=== PATIENT | female | born 1985 | race Caucasian/White ===

== ENCOUNTER 2021-08-19 17:55 | Emergency (ER) | payer OTHER, MEDICAID, SELFPAY ==
[2021-08-19 18:12] VITALS: BP 134/99; PULSE 106; RESP 20; TEMP 36.6; O2SAT 99; BMI 43.5
[2021-08-19 18:37] LABS: COVID19 -Nasal RAPID Negative (Negative)
--- NOTE | 2021-08-19 18:39 | ED_ITS ---
HPI - Nausea/Vomiting/Diarrhea General Chief complaint: Nausea/Vomiting/Diarrhea Stated complaint: dizzy not able to eat Time Seen by Provider: 08/19/21 18:24 Source: patient Mode of arrival: Family Vehicle History of Present Illness HPI Narrative: 36-year-old female daily smoker with history of diabetes presents with her mother and a chief complaint from a weak feeling poorly with various symptoms including generalized weakness, poor appetite and more recently nausea, vomiting and diarrhea. She denies any recent travel, change in diet or medications. She has had no fever or chills. She denies runny nose, sore throat or cough. She has become dizzy over the past day or 2, primarily upon standing and largely more fatigued than normal. She is on vaccinated against COVID but denies any exposure to others with known or suspected illness. She spoke with her primary care provider a few days ago who encouraged her to stop taking her metformin (she is on other diabetic meds) and encourage fluids Related Data Previous Rx's Medication Instructions Recorded ondansetron 4 mg disintegrating 4 mg PO TID-QID PRN #10 tab 08/19/21 tablet pantoprazole 40 mg tablet,delayed 40 mg PO DAILY #30 tab 08/19/21 release (Protonix) Allergies Allergy/AdvReac Type Severity Reaction Status Date / Time clarithromycin [From BIAXIN] Allergy Unknown Verified 08/19/21 18:18 erythromycin base Allergy Unknown Verified 08/19/21 18:18 [ERYTHROMYCIN BASE] Penicillins [PENICILLINS] Allergy Unknown Verified 08/19/21 18:18 Review of Systems Review of Systems Narrative: GENERAL: See HPI HEENT: Denies sinus pain, ear pain, sore throat, difficulty swallowing, dizziness. RESPIRATORY: Denies dyspnea, cough, wheezing, hemoptysis, sputum. CARDIOVASCULAR: Denies chest pain, palpitations, orthopnea, edema, GASTROINTESTINAL: See HPI : Denies dysuria, frequency, incontinence, hematuria, urinary retention. MUSCULOSKELETAL: denies weakness, joint pain, or bony pain SKIN: Denies rash, skin lesions, or other NEUROLOGIC: Denies weakness, headache, numbness, change in speech, confusion, seizures, incoordination. PSYCHIATRIC: No concerning psychosocial issues. 12 point review of systems is negative except for those stated above Patient History Social History Smoking Status: Current every day smoker Smoking Status: Current every day smoker tobacco type: cigarettes alcohol intake frequency: 0-2 drinks per day Substance Use Type: does not use Exam Narrative Exam Narrative: GENERAL: [36 year old patient appears stated age. Well-developed patient, in mild distress. HEAD: Atraumatic. Normocephalic. EYES: Pupils equal round and reactive. Extraocular motions intact. No scleral icterus. No injection or drainage. ENT: Nose without bleeding, purulent drainage. Throat without erythema, tonsillar hypertrophy or exudate. Airway patent. NECK: Trachea midline. Non tender CARDIOVASCULAR: Regular rate and rhythm without murmurs, gallops, or rubs. RESPIRATORY: Clear to auscultation. Breath sounds equal bilaterally. No wheezes, rales, or rhonchi. GASTROINTESTINAL: Abdomen soft, non-tender, nondistended. EXTREMITIES: No edema or joint tenderness. BACK: Nontender without deformity or crepitance. No flank tenderness. NEURO: AOx3. SKIN: No rash or erythema of visible areas Initial Vital Signs Initial Vital Signs: Vital Signs Temperature 97.9 F 08/19/21 18:12 Pulse Rate 106 H 08/19/21 18:12 Respiratory Rate 20 08/19/21 18:12 Blood Pressure 134/99 H 08/19/21 18:12 Pulse Oximetry 99 08/19/21 18:12 Course Orders Ordered: ED Orders 08/19/21 18:17 Complete Blood Count AUTO DIFF Stat Comprehensive Metabolic Panel Stat Lactate (Lactic Acid) Stat Lipase Stat Magnesium Stat TSH w/ Reflex to FT4 Stat 08/19/21 19:10 EKG-12 Lead Stat Discontinued Medications Lactated Ringer's (Lactated Ringers) 1,000 mls @ 1,000 mls/hr IV BOLUS ONE Stop: 08/19/21 20:08 Last Infusion: 08/19/21 20:33 Dose: 0 mls/hr Documented by: Admin: 08/19/21 19:18 Dose: 1,000 mls/hr Documented by: NOEL Sodium Chloride (Normal Saline 0.9%) 1,000 mls @ 1,000 mls/hr IV BOLUS ONE Stop: 08/19/21 19:48 Last Admin: 08/19/21 20:23 Dose: Not Given Documented by: TAVARES Lactated Ringer's (Lactated Ringers) 1,000 mls @ 1,000 mls/hr IV BOLUS ONE Stop: 08/19/21 21:20 Last Infusion: 08/19/21 21:47 Dose: 0 mls/hr Documented by: Admin: 08/19/21 20:33 Dose: 1,000 mls/hr Documented by: TAVARES Ondansetron HCl (Ondansetron 4 Mg/2 Ml Inj) 4 mg IV NOW ONE Stop: 08/19/21 19:10 Last Admin: 08/19/21 19:18 Dose: 4 mg Documented by: NOEL Ondansetron HCl (Ondansetron 4 Mg/2 Ml Inj) 4 mg IV NOW ONE Stop: 08/19/21 18:49 Pantoprazole Sodium (Pantoprazole 40 Mg Vial) 40 mg IV NOW ONE Stop: 08/19/21 19:10 Last Admin: 08/19/21 19:18 Dose: 40 mg Documented by: NOEL Vital Signs Vital signs: Vital Signs - 8 hr 08/19/21 21:56 Pulse Rate 97 H Respiratory Rate 18 Blood Pressure 122/82 Pulse Oximetry 98 MDM - Nausea/Vomiting/Diarrhea Lab Data Result diagrams: 08/19/21 18:17 08/19/21 18:17 Labs: Lab Results 08/19/21 08/19/21 08/19/21 Range/Units 18:10 18:17 18:17 WBC 11.9 H (4.5-11.0) X10^3/uL RBC 5.19 (4.0-5.2) X10^6/uL Hgb 15.7 (12.0-16.0) g/dL Hct 46.3 H (36-46) % MCV 89.1 (80-100) fL MCH 30.3 (26-34) PG MCHC 34.0 (30-36) % RDW 12.9 (11.6-14.8) % Plt Count 347 (150-400) X10^3/uL Neut % (Auto) 59.6 (50-75) % Lymph % (Auto) 31.7 (25-40) % [place] % (Auto) 6.2 (3-14) % Eos % (Auto) 2.0 (2-4) % Baso % (Auto) 0.5 (0-2) % Neut # (Auto) 7100 H (6483-3381) /uL Lymph # (Auto) 3800 (7955-9820) /uL [place] # (Auto) 700 (0-900) /uL Eos # (Auto) 200 (0-450) /uL Baso # (Auto) 100 (0-100) /uL Sodium (137-145) mmol/L Potassium (3.4-5.1) mmol/L Chloride (98-107) mmol/L Carbon Dioxide (22-32) mmol/L BUN (7-17) mg/dL Creatinine (0.52-1.04) mg/dL Estimated GFR (>60) mL/min BUN/Creatinine Ratio (6-22) Glucose (70-100) mg/dL Lactate (0.7-2.1) mmol/L Calcium (8.4-10.2) mg/dL Magnesium (1.6-2.3) mg/dL Total Bilirubin (0.2-1.3) mg/dL AST (14-36) IU/L ALT (<35) IU/L Alkaline Phosphatase (38-126) U/L Total Protein (6.3-8.2) g/dL Albumin (3.5-5.0) g/dL Globulin (1.7-4.1) g/dL Albumin/Globulin Ratio (1.0-2.8) Lipase (23-300) U/L TSH 0.89 (0.47-4.68) uIU/mL SARS-CoV-2 (PCR) Negative (Negative) 08/19/21 08/19/21 Range/Units 18:17 18:17 WBC (4.5-11.0) X10^3/uL RBC (4.0-5.2) X10^6/uL Hgb (12.0-16.0) g/dL Hct (36-46) % MCV (80-100) fL MCH (26-34) PG MCHC (30-36) % RDW (11.6-14.8) % Plt Count (150-400) X10^3/uL Neut % (Auto) (50-75) % Lymph % (Auto) (25-40) % [place] % (Auto) (3-14) % Eos % (Auto) (2-4) % Baso % (Auto) (0-2) % Neut # (Auto) (4691-3527) /uL Lymph # (Auto) (6696-4326) /uL [place] # (Auto) (0-900) /uL Eos # (Auto) (0-450) /uL Baso # (Auto) (0-100) /uL Sodium 135 L (137-145) mmol/L Potassium 4.0 (3.4-5.1) mmol/L Chloride 99 (98-107) mmol/L Carbon Dioxide 25 (22-32) mmol/L BUN 12 (7-17) mg/dL Creatinine 0.67 (0.52-1.04) mg/dL Estimated GFR > 60.0 (>60) mL/min BUN/Creatinine Ratio 17.9 (6-22) Glucose 173 H (70-100) mg/dL Lactate 1.3 (0.7-2.1) mmol/L Calcium 9.5 (8.4-10.2) mg/dL Magnesium 1.9 (1.6-2.3) mg/dL Total Bilirubin 0.7 (0.2-1.3) mg/dL AST 43 H (14-36) IU/L ALT 64 H (<35) IU/L Alkaline Phosphatase 99 (38-126) U/L Total Protein 8.3 H (6.3-8.2) g/dL Albumin 4.9 (3.5-5.0) g/dL Globulin 3.4 (1.7-4.1) g/dL Albumin/Globulin Ratio 1.4 (1.0-2.8) Lipase 105 (23-300) U/L TSH (0.47-4.68) uIU/mL SARS-CoV-2 (PCR) (Negative) Point of Care Testing Test Results Negative Urine Dip Bedside Urine Glucose Negative Bedside Urine Bilirubin - Negative Bedside Urine Ketone + 15 Urine Specific [place] 1.03 Bedside Urine Occult Blood - Negative Bedside Urine pH 5.5 Bedside Urine Protein +/- 15 Bedside Urine Urobilinogen - Negative Bedside Urine Nitrite - Negative Bedside Urine Leukocytes - Negative Esterase MDM Narrative Medical decision making narrative: Multiple etiologies for patient's symptoms considered including: [COVID versus dehydration versus urinary tract infection versus pneumonia versus other Patient's symptoms improved over duration of stay with above-stated therapies. Findings and discharge diagnosis discussed with patient/family followed by verbalization of understanding Return precautions discussed with patient/family whom verbalize understanding. Discharge Plan Departure Patient Disposition: Home Clinical Impression: Acute dehydration, Nausea Instructions: DI for Dehydration -- Adult, DI for Nausea -- Adult Activity Restrictions/Additional Instructions: *You have been diagnosed with [dehydration and nausea. As we discussed, your history, physical exam and labs are otherwise very reassuring. There is no evidence of any significant or life-threatening diagnosis that would require any specific and immediate intervention *What to do: *Please continue to take your regular medications as directed. [x ] New medication prescriptions sent to your pharmacy: [[facility] in [place] ] [ ] New medication written as a paper prescription [ ] No new medications given *Please follow up with your primary care provider in 2-3 days, call for an appointment. Let them know you were seen in the Emergency Department and that we ask that you be seen in follow up. We will electronically transmit a record of today's note if your PCP is in our system *If you do not have a primary care provider please contact the [facility] Resource line at [phone]. They will ask some questions about your medical history and help get you set up with a doctor in the community. *Return to Emergency Department if you should have any new, worsening or concerning symptoms, such as [fever greater than 101 F, shaking chills, worsening pain, persistent vomiting or other bothersome symptoms] Prescriptions: New pantoprazole [Protonix] 40 mg tablet,delayed release (DR/EC) 40 mg PO DAILY Qty: 30 0RF ondansetron 4 mg tablet,disintegrating 4 mg PO TID-QID PRN (Reason: nausea and vomiting) Qty: 10 0RF Referrals: Tyra Alberto PA-C [Primary Care Provider] -
[2021-08-19 19:18] LABS: Add Manual Diff / Slide Review NO; Basophils Absolute Auto 100 /uL (0-100); Basophils Percent Auto 0.5 % (0-2); Eosinophils Absolute Auto 200 /uL (0-450); Hematocrit 46.3 % (36-46); Hemoglobin 15.7 g/dL (12.0-16.0); Lymphocytes Absolute Auto 3800 /uL (1100-4500); Lymphocytes Percent Auto 31.7 % (25-40); Mean Corpuscular Hemoglobin 30.3 PG (26-34); Mean Corpuscular Volume 89.1 fL (80-100); Monocytes Absolute Auto 700 /uL (0-900); Monocytes Percent Auto 6.2 % (3-14); Neutrophils Absolute Auto 7100 /uL (1500-7000); Neutrophils Percent Auto 59.6 % (50-75); Platelet Count 347 X10^3/uL (150-400); Red Blood Cell Count 5.19 X10^6/uL (4.0-5.2); Red Cell Distribution Width 12.9 % (11.6-14.8); White Blood Cell Count 11.9 X10^3/uL (4.5-11.0)
[2021-08-19] MEDS: LACTATED RINGERS 1,000 ML 1000 ML IV ×2 (19:18→20:33)
[2021-08-19] MEDS: PANTOPRAZOLE 40 MG VIAL IV (19:18)
[2021-08-19] MEDS: ONDANSETRON 4 MG/2 ML INJ IV (19:18)
[2021-08-19 19:31] LABS: Lactate (Lactic Acid) 1.3 mmol/L (0.7-2.1)
[2021-08-19 19:33] LABS: Alanine Aminotransferase 64 IU/L (<35); Albumin 4.9 g/dL (3.5-5.0); Albumin Globulin Ratio 1.4 (1.0-2.8); Alkaline Phosphatase 99 U/L (38-126); Aspartate Aminotransferase 43 IU/L (14-36); BUN Creatinine Ratio 17.9 (6-22); Bilirubin Total 0.7 mg/dL (0.2-1.3); Blood Urea Nitrogen 12 mg/dL (7-17); Calcium 9.5 mg/dL (8.4-10.2); Carbon Dioxide 25 mmol/L (22-32); Chloride 99 mmol/L (98-107); Estimated Glomerular Filt Rate > 60.0 mL/min (>60); Globulin 3.4 g/dL (1.7-4.1); Glucose 173 mg/dL (70-100); HEMOLYSIS < 15 (0-50); Lipase 105 U/L (23-300); Magnesium 1.9 mg/dL (1.6-2.3); Sodium 135 mmol/L (137-145); Total Protein 8.3 g/dL (6.3-8.2)
[2021-08-19 20:02] LABS: TSH w/ Reflex to FT4 0.89 uIU/mL (0.47-4.68)
[2021-08-19 21:56] VITALS: BP 122/82; PULSE 97; RESP 18; O2SAT 98
== END 2021-08-19 21:59 | disposition home or self-care (01) ==
PROVIDERS: Emergency Provider Emergency Medicine; PCP Physician Assistant Medical
DX: E86.0 Dehydration (principal); R11.0 Nausea; F17.210 Nicotine dependence, cigarettes, uncomplicated; Z20.822 Contact with and (suspected) exposure to COVID-19
CPT/HCPCS: 36415; 80053; 81003; 81025; 83605; 83690; 83735; 84443; 85025; 87635; 93005; 93010; 96361; 96374; 96375; 99284; C9803; C9113; J2405

== ENCOUNTER 2021-09-07 16:01 | Emergency (ER) | payer OTHER, MEDICAID, SELFPAY ==
[2021-09-07 16:07] VITALS: BP 168/107; PULSE 93; RESP 16; TEMP 36.1; O2SAT 98; BMI 43.0
--- NOTE | 2021-09-07 18:20 | ED_ITS ---
HPI - Nausea/Vomiting/Diarrhea <CHANCE Rocha - Last Filed: 09/07/21 20:38> General Chief complaint: Nausea/Vomiting/Diarrhea Stated complaint: states needs IV, not keeping anything down x 28 d Time Seen by Provider: 09/07/21 18:03 History of Present Illness HPI Narrative: 36-year-old female presents to the emergency department complaining of nausea an d vomiting daily due to her hiatal hernia, and the inability to keep anything down including her medications. She states that she has been dehydrated, starting to feel depressed, she has a pending GI appointment in 4 days, she also has a appointment with her primary care provider on 09/13/2021. She is requesting IV hydration. She states that she has been unable to take her glipizide, she is out of Zofran, she has not been taking Protonix. She denies any recent fever, shortness of breath, chest pain, diarrhea, chills, or weakness. Related Data Previous Rx's Medication Instructions Recorded ondansetron 4 mg disintegrating 4 mg PO TID-QID PRN #10 tab 08/19/21 tablet pantoprazole 40 mg tablet,delayed 40 mg PO DAILY #30 tab 08/19/21 release (Protonix) metoclopramide HCl 10 mg tablet 10 mg PO QAC #14 tab 09/07/21 (Reglan) ondansetron 4 mg disintegrating 4 mg PO Q8H PRN #20 tab 09/07/21 tablet pantoprazole 40 mg tablet,delayed 40 mg PO DAILY 30 Days #30 tab 09/07/21 release (Protonix) Allergies Allergy/AdvReac Type Severity Reaction Status Date / Time clarithromycin [From BIAXIN] Allergy Unknown Verified 08/19/21 18:18 erythromycin base Allergy Unknown Verified 08/19/21 18:18 [ERYTHROMYCIN BASE] Penicillins [PENICILLINS] Allergy Unknown Verified 08/19/21 18:18 Review of Systems <CHANCE Rocha - Last Filed: 09/07/21 20:38> Review of Systems Narrative: General: denies fever, chills, malaise, sweats, fatigue Head/Neck: denies headache, neck pain, dizziness Eyes: denies visual changes, eye pain Cardio: denies chest pain, palpitations, edema Respiratory: denies dyspnea, cough, orthopnea GI: denies abdominal pain, endorses nausea and vomiting without diarrhea : denies dysuria, hematuria, urinary retention, frequency or incontinence MSK: denies joint pain, muscle weakness Skin: denies rash, itching, skin lesions or other Neuro: denies numbness, tingling Patient History <CHANCE Rocha - Last Filed: 09/07/21 20:38> Social History Smoking Status: Current every day smoker Smoking Status: Current every day smoker tobacco type: cigarettes alcohol intake frequency: 0-2 drinks per day Substance Use Type: does not use Exam <CHANCE Rocha - Last Filed: 09/07/21 20:38> Narrative Exam Narrative: Independently reviewed vitals signs and nursing notes. General: Cooperative, comfortable, in no acute distress, obese, appears tired Head/Neck: Normal visual inspection and supple, atraumatic, no JVD or lymphadenopathy. Normal facial exam Eyes: Pupils equal round and reactive, EOMI, conjunctiva normal, no scleral icterus or injections Nose: External nose normal, nares patent, no rhinorrhea, without purulent drainage Mouth/Throat: uvula midline, moist mucus membranes Cardio: Regular rate and rhythm, no peripheral edema, warm extremities Respiratory: Normal respiratory effort, able to speak in complete sentences without audible wheezing, stridor, or rales. No retractions. GI: Abdomen soft, obese, nontender to palpation x4 quadrants, nondistended, no masses or exquisite tenderness with exam, no flank tenderness MSK: Moves all extremities, neurovascularly intact Skin: Normal capillary refill, no rash Neuro: Normal speech and cognition, normal gait, A&O x3, tone normal, moves all extremities Psych: Mental status is grossly normal, speech is clear, congruent mood, normal affect Initial Vital Signs Initial Vital Signs: Vital Signs Temperature 97.0 F L 09/07/21 16:07 Pulse Rate 93 H 09/07/21 16:07 Respiratory Rate 16 09/07/21 16:07 Blood Pressure 168/107 H 09/07/21 16:07 Pulse Oximetry 98 09/07/21 16:07 <Eze Ruelas DO - Last Filed: 09/14/21 18:04> Initial Vital Signs Initial Vital Signs: Vital Signs Temperature 97.0 F L 09/07/21 16:07 Pulse Rate 93 H 09/07/21 16:07 Respiratory Rate 16 09/07/21 16:07 Blood Pressure 168/107 H 09/07/21 16:07 Pulse Oximetry 98 09/07/21 16:07 Course <CHANCE Rocha - Last Filed: 09/07/21 20:38> Orders Ordered: Discontinued Medications Sodium Chloride (Normal Saline 0.9%) 1,000 mls @ 1,000 mls/hr IV BOLUS ONE Stop: 09/07/21 19:18 Last Infusion: 09/07/21 20:25 Dose: 0 mls/hr Documented by: Admin: 09/07/21 18:50 Dose: 1,000 mls/hr Documented by: GWEN Metoclopramide HCl (Metoclopramide 10 Mg/2 Ml Inj) 10 mg IV NOW ONE Stop: 09/07/21 18:20 Last Admin: 09/07/21 18:50 Dose: 10 mg Documented by: GWEN Ondansetron HCl (Ondansetron 4 Mg/2 Ml Inj) 4 mg IV NOW ONE Stop: 09/07/21 18:21 Last Admin: 09/07/21 18:50 Dose: 4 mg Documented by: GWEN Pantoprazole Sodium (Pantoprazole 40 Mg Vial) 20 mg IV NOW ONE Stop: 09/07/21 18:20 Last Admin: 09/07/21 19:03 Dose: Not Given Documented by: GWEN Pantoprazole Sodium (Pantoprazole 40 Mg Vial) 40 mg IV NOW ONE Stop: 09/07/21 18:23 Last Admin: 09/07/21 18:50 Dose: 40 mg Documented by: GWEN Vital Signs Vital signs: Vital Signs - 8 hr 09/07/21 16:07 09/07/21 20:18 Temperature 97.0 F L Pulse Rate 93 H 82 Respiratory Rate 16 17 Blood Pressure 168/107 H 160/89 H Pulse Oximetry 98 97 <Eze Ruelas DO - Last Filed: 09/14/21 18:04> Orders Ordered: Discontinued Medications Sodium Chloride (Normal Saline 0.9%) 1,000 mls @ 1,000 mls/hr IV BOLUS ONE Stop: 09/07/21 19:18 Last Infusion: 09/07/21 20:25 Dose: 0 mls/hr Documented by: Admin: 09/07/21 18:50 Dose: 1,000 mls/hr Documented by: GWEN Metoclopramide HCl (Metoclopramide 10 Mg/2 Ml Inj) 10 mg IV NOW ONE Stop: 09/07/21 18:20 Last Admin: 09/07/21 18:50 Dose: 10 mg Documented by: GWEN Ondansetron HCl (Ondansetron 4 Mg/2 Ml Inj) 4 mg IV NOW ONE Stop: 09/07/21 18:21 Last Admin: 09/07/21 18:50 Dose: 4 mg Documented by: GWEN Pantoprazole Sodium (Pantoprazole 40 Mg Vial) 20 mg IV NOW ONE Stop: 09/07/21 18:20 Last Admin: 09/07/21 19:03 Dose: Not Given Documented by: GWEN Pantoprazole Sodium (Pantoprazole 40 Mg Vial) 40 mg IV NOW ONE Stop: 09/07/21 18:23 Last Admin: 09/07/21 18:50 Dose: 40 mg Documented by: GWEN Vital Signs Vital signs: Vital Signs - 8 hr 09/07/21 16:07 09/07/21 20:18 Temperature 97.0 F L Pulse Rate 93 H 82 Respiratory Rate 16 17 Blood Pressure 168/107 H 160/89 H Pulse Oximetry 98 97 MDM - Nausea/Vomiting/Diarrhea <CHANCE Rocha - Last Filed: 09/07/21 20:38> Lab Data Result diagrams: 09/07/21 19:21 09/07/21 19:21 Labs: Lab Results 09/07/21 09/07/21 Range/Units 19:21 19:21 WBC 7.0 (4.5-11.0) X10^3/uL RBC 4.64 (4.0-5.2) X10^6/uL Hgb 14.3 (12.0-16.0) g/dL Hct 41.2 (36-46) % MCV 88.7 (80-100) fL MCH 30.8 (26-34) PG MCHC 34.7 (30-36) % RDW 13.0 (11.6-14.8) % Plt Count 255 (150-400) X10^3/uL Neut % (Auto) 56.0 (50-75) % Lymph % (Auto) 34.1 (25-40) % [place] % (Auto) 5.8 (3-14) % Eos % (Auto) 2.8 (2-4) % Baso % (Auto) 1.3 (0-2) % Neut # (Auto) 3900 (7301-4418) /uL Lymph # (Auto) 2400 (2956-2125) /uL [place] # (Auto) 400 (0-900) /uL Eos # (Auto) 200 (0-450) /uL Baso # (Auto) 100 (0-100) /uL Sodium 141 (137-145) mmol/L Potassium 3.6 (3.4-5.1) mmol/L Chloride 107 (98-107) mmol/L Carbon Dioxide 30 (22-32) mmol/L BUN 8 (7-17) mg/dL Creatinine 0.55 (0.52-1.04) mg/dL Estimated GFR > 60.0 (>60) mL/min BUN/Creatinine Ratio 14.5 (6-22) Glucose 129 H (70-100) mg/dL Calcium 9.2 (8.4-10.2) mg/dL Total Bilirubin 0.5 (0.2-1.3) mg/dL AST 28 (14-36) IU/L ALT 34 (<35) IU/L Alkaline Phosphatase 74 (38-126) U/L Total Protein 7.2 (6.3-8.2) g/dL Albumin 4.3 (3.5-5.0) g/dL Globulin 2.9 (1.7-4.1) g/dL Albumin/Globulin Ratio 1.5 (1.0-2.8) Lipase 38 (23-300) U/L [facility] Narrative Medical decision making narrative: 36-year-old diabetic Female presents to the emergency department complaining of dehydration due to intractable nausea vomiting from her hiatal hernia, since 08/19/2021 when she came to the emergency department initially for this. Patient has an upcoming GI appointment and PCP appointment early next week. She states that every time she tries to eat something she immediately throws it back up. She has been unable to keep down any of her meds, she is out of her Zofran, she has not been taking her glipizide or Protonix. Patient also endorses feelings of depression and would like connection to a counselor. Social work was consulted and a list of counselors that take her insurance were given to her. Patient denies any fever, acute illness, worsening pain, or any of those symptoms. She was seeking IV hydration due to her nausea vomiting. She was given Reglan, this helped with her nausea, she was also given Zofran so that she could try to p.o. challenge. She did tolerate some small amounts of water in the emergency department. Differential diagnoses include hiatal hernia, achalasia, gastroparesis, esophageal motility disorder, esophageal spasm, pseudo achalasia. Recommend patient follow-up with her providers as scheduled and to return to the emergency department if she has any worsening of her symptoms. Her Protonix was refilled, she was given a prescription for Reglan as well as Zofran. She is not currently on any antidepressants, risk for prolonged addition of her QT is low. Instructed patient to take 1 Reglan in the morning before meals, wait 30 minutes, is try small volume amounts of food more frequently throughout the day. And to take Zofran as needed if she is nauseated. Patient is appropriate and amenable to discharge home. Vital signs are stable on repeat examination is unremarkable. Patient has been informed of results. Patient has been given strict return to ER precautions for any new or worsening symptoms. Patient understands to follow up closely with outpatient providers as instructed. Patient understands plan and agrees to discharge home. All questions and concerns answered at this time. <Eze Ruelas DO - Last Filed: 09/14/21 18:04> Lab Data Labs: Lab Results 09/07/21 09/07/21 Range/Units 19:21 19:21 WBC 7.0 (4.5-11.0) X10^3/uL RBC 4.64 (4.0-5.2) X10^6/uL Hgb 14.3 (12.0-16.0) g/dL Hct 41.2 (36-46) % MCV 88.7 (80-100) fL MCH 30.8 (26-34) PG MCHC 34.7 (30-36) % RDW 13.0 (11.6-14.8) % Plt Count 255 (150-400) X10^3/uL Neut % (Auto) 56.0 (50-75) % Lymph % (Auto) 34.1 (25-40) % [place] % (Auto) 5.8 (3-14) % Eos % (Auto) 2.8 (2-4) % Baso % (Auto) 1.3 (0-2) % Neut # (Auto) 3900 (6290-9236) /uL Lymph # (Auto) 2400 (5386-1704) /uL [place] # (Auto) 400 (0-900) /uL Eos # (Auto) 200 (0-450) /uL Baso # (Auto) 100 (0-100) /uL Sodium 141 (137-145) mmol/L Potassium 3.6 (3.4-5.1) mmol/L Chloride 107 (98-107) mmol/L Carbon Dioxide 30 (22-32) mmol/L BUN 8 (7-17) mg/dL Creatinine 0.55 (0.52-1.04) mg/dL Estimated GFR > 60.0 (>60) mL/min BUN/Creatinine Ratio 14.5 (6-22) Glucose 129 H (70-100) mg/dL Calcium 9.2 (8.4-10.2) mg/dL Total Bilirubin 0.5 (0.2-1.3) mg/dL AST 28 (14-36) IU/L ALT 34 (<35) IU/L Alkaline Phosphatase 74 (38-126) U/L Total Protein 7.2 (6.3-8.2) g/dL Albumin 4.3 (3.5-5.0) g/dL Globulin 2.9 (1.7-4.1) g/dL Albumin/Globulin Ratio 1.5 (1.0-2.8) Lipase 38 (23-300) U/L Discharge Plan Departure Patient Disposition: Home Clinical Impression: Acute dehydration Intractable vomiting Qualifiers: Vomiting type: unspecified Nausea presence: with nausea Qualified Code(s): R11.2 - Nausea with vomiting, unspecified Instructions: DI for Dehydration -- Adult Activity Restrictions/Additional Instructions: *You have been diagnosed with nausea, vomiting, and dehydration. Please follow- up with your providers as scheduled. Hopefully this will be helpful for you. I have called in Kush which you can use as needed for your nausea the vomiting. Please take 1 tablet of Reglan each morning before food, wait 30 minutes and then try to do small volume amounts soft food and hydration. Please take the Protonix on an empty stomach as well, this is ulcer prevention. Please follow- up and ask about endoscopy. I hope you start feeling better soon, please return to the emergency department if you have any worsening of her symptoms. Try to continue to stay hydrated by mouth if you can. Your medications are sent to [facility] in [place]. *What to do: *Please continue to take your regular medications as directed. [x ] New medication prescriptions sent to your pharmacy: [[facility] ] [ ] New medication written as a paper prescription [ ] No new medications given *Please follow up with your primary care provider in 2-3 days, call for an appointment. Let them know you were seen in the Emergency Department and that we ask that you be seen in follow up. We will electronically transmit a record of today's note if your PCP is in our system *If you do not have a primary care provider please contact the [facility] Resource line at [phone]. They will ask some questions about your medical history and help get you set up with a doctor in the community. *Return to Emergency Department if you should have any new, worsening or concerning symptoms, such as [fever greater than 101F, chills, worsening pain, persistent vomiting or other bothersome symptoms] Prescriptions: New pantoprazole [Protonix] 40 mg tablet,delayed release (DR/EC) 40 mg PO DAILY 30 Days Qty: 30 0RF ondansetron 4 mg tablet,disintegrating 4 mg PO Q8H PRN (Reason: nausea and vomiting) Qty: 20 0RF metoclopramide HCl [Reglan] 10 mg tablet 10 mg PO QAC Qty: 14 0RF Rx Instructions: administer 30 minutes before meals No Action pantoprazole [Protonix] 40 mg tablet,delayed release (DR/EC) 40 mg PO DAILY Qty: 30 0RF ondansetron 4 mg tablet,disintegrating 4 mg PO TID-QID PRN (Reason: nausea and vomiting) Qty: 10 0RF <Eze Ruelas, DO - Last Filed: 09/14/21 18:04> Cosign ED Attending Cosignature Attestation: Dr Ruelas Co-Sign Statement: I was available for consultation during this patient's emergency department visit. This chart is signed by myself for administrative purposes only. I did not have direct contact with this patient during this visit. They were seen independently by the APC.
[2021-09-07] MEDS: PANTOPRAZOLE 40 MG VIAL IV (18:50)
[2021-09-07] MEDS: ONDANSETRON 4 MG/2 ML INJ IV (18:50)
[2021-09-07] MEDS: METOCLOPRAMIDE 10 MG/2 ML INJ IV (18:50)
[2021-09-07] MEDS: SODIUM CHLORIDE 0.9% 1,000 ML 1000 ML IV (18:50)
[2021-09-07 19:28] LABS: Add Manual Diff / Slide Review NO; Basophils Absolute Auto 100 /uL (0-100); Basophils Percent Auto 1.3 % (0-2); Eosinophils Absolute Auto 200 /uL (0-450); Eosinophils Percent Auto 2.8 % (2-4); Hematocrit 41.2 % (36-46); Hemoglobin 14.3 g/dL (12.0-16.0); Lymphocytes Absolute Auto 2400 /uL (1100-4500); Lymphocytes Percent Auto 34.1 % (25-40); Mean Corpuscular HGB Conc 34.7 % (30-36); Mean Corpuscular Hemoglobin 30.8 PG (26-34); Mean Corpuscular Volume 88.7 fL (80-100); Monocytes Absolute Auto 400 /uL (0-900); Monocytes Percent Auto 5.8 % (3-14); Neutrophils Absolute Auto 3900 /uL (1500-7000); Platelet Count 255 X10^3/uL (150-400); Red Blood Cell Count 4.64 X10^6/uL (4.0-5.2)
[2021-09-07 19:41] LABS: Alanine Aminotransferase 34 IU/L (<35); Albumin 4.3 g/dL (3.5-5.0); Albumin Globulin Ratio 1.5 (1.0-2.8); Alkaline Phosphatase 74 U/L (38-126); Aspartate Aminotransferase 28 IU/L (14-36); BUN Creatinine Ratio 14.5 (6-22); Bilirubin Total 0.5 mg/dL (0.2-1.3); Blood Urea Nitrogen 8 mg/dL (7-17); Calcium 9.2 mg/dL (8.4-10.2); Carbon Dioxide 30 mmol/L (22-32); Chloride 107 mmol/L (98-107); Estimated Glomerular Filt Rate > 60.0 mL/min (>60); Globulin 2.9 g/dL (1.7-4.1); Glucose 129 mg/dL (70-100); HEMOLYSIS < 15 (0-50); Lipase 38 U/L (23-300); Potassium 3.6 mmol/L (3.4-5.1); Sodium 141 mmol/L (137-145); Total Protein 7.2 g/dL (6.3-8.2)
[2021-09-07 20:18] VITALS: BP 160/89; PULSE 82; RESP 17; O2SAT 97
== END 2021-09-07 20:37 | disposition home or self-care (01) ==
PROVIDERS: Emergency Provider Nurse Practitioner Critical Care Medicine
DX: E86.0 Dehydration (principal); R11.2 Nausea with vomiting, unspecified; F17.210 Nicotine dependence, cigarettes, uncomplicated
CPT/HCPCS: 36415; 80053; 83690; 85025; 96361; 96374; 96375; 99283; 99284; C9113; J2405; J2765

== ENCOUNTER 2022-08-11 18:56 | Emergency (ER) | payer OTHER, MEDICAID, SELFPAY ==
[2022-08-11 19:03] VITALS: BP 165/87; PULSE 103; RESP 18; TEMP 36.9; O2SAT 99; BMI 45.1
--- NOTE | 2022-08-11 19:07 | DI.RAD.S_ITS ---
PROCEDURE: XR MANDIBLE MIN 4V INDICATIONS: jaw pain left side TECHNIQUE: 4 views of the mandible were acquired. COMPARISON: None. FINDINGS: Bones: No acute fractures or dislocations. No suspicious bony lesions. Soft tissues: Visualized sinuses appear clear. No asymmetric opacification. No air-fluid level seen. No suspicious soft tissue densities. IMPRESSION: Negative mandibular series. Dictated by: Joseph Felder M.D. on 08/11/2022 at 19:44 Approved by: Joseph Felder M.D. on 08/11/2022 at 19:45
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
[2022-08-12 01:00] VITALS: BP 131/91; PULSE 90; O2SAT 99
[2022-08-12] MEDS: KETOROLAC 30 MG/ML VIAL IM (01:06)
== END 2022-08-12 01:10 | disposition home or self-care (01) ==
PROVIDERS: Emergency Provider Emergency Medicine
DX: M26.602 Left temporomandibular joint disorder, unspecified (principal)
CPT/HCPCS: 70110; 96372; 99283; J1885

== ENCOUNTER 2023-01-05 23:14 | Emergency (ER) | payer OTHER, MEDICAID, SELFPAY ==
[2023-01-05 23:20] VITALS: BP 156/96; PULSE 90; RESP 18; TEMP 36.4; O2SAT 95; BMI 43.4
--- NOTE | 2023-01-05 23:46 | ED_ITS ---
HPI - Extremity Injury (Lower) General Chief Complaint: Extremity Injury, Lower Stated Complaint: right knee/hip/back x1 day Time Seen by Provider: 01/05/23 23:32 Source: patient Mode of arrival: Ambulatory History of Present Illness HPI Narrative: 37-year-old female daily smoker with history of chronic back pain, anxiety, bipolar presents with her mother and a chief complaint of low back pain and right knee pain. She states that she was repositioning herself in bed when she felt a pop in her knee and developed pain adjacent to her kneecap on her right knee. She is ambulatory but states that walking hurts her lateral knee. Additi onally though she has a history of chronic back pain she feels some increasing pain in her back and some radiation of pain lateral to her hip. She denies any fall or direct trauma. She is had no fever or chills. She takes no blood thinners. She denies loss of control of bowel or bladder. She denies any lower extremity weakness. Related Data Previous Rx's Medication Instructions Recorded ondansetron 4 mg disintegrating 4 mg PO TID-QID PRN nausea and 08/19/21 tablet vomiting #10 tabs pantoprazole 40 mg tablet,delayed 40 mg PO DAILY #30 tabs 08/19/21 release (Protonix) metoclopramide HCl 10 mg tablet 10 mg PO QAC nausea and vomit #14 09/07/21 (Reglan) tabs ondansetron 4 mg disintegrating 4 mg PO Q8H PRN nausea and 09/07/21 tablet vomiting #20 tabs ketorolac 10 mg tablet 10 mg PO Q6H PRN pain #14 tabs 08/12/22 gabapentin 300 mg capsule 300 mg PO BEDTIME #14 caps 01/06/23 hydrocodone 5 mg-acetaminophen 325 1 tab PO Q4-6H PRN pain #10 tabs 01/06/23 mg tablet ketorolac 10 mg tablet 10 mg PO Q6H PRN pain #14 tabs 01/06/23 lorazepam 1 mg tablet 1 mg PO TID PRN anxiety #10 tabs 01/06/23 Allergies Allergy/AdvReac Type Severity Reaction Status Date / Time clarithromycin [From BIAXIN] Allergy Unknown Verified 08/11/22 19:07 erythromycin base Allergy Unknown Verified 08/11/22 19:07 [ERYTHROMYCIN BASE] Penicillins [PENICILLINS] Allergy Unknown Verified 08/11/22 19:07 Review of Systems Review of Systems Narrative: GENERAL: Denies chills, fatigue, malaise, fever, sweats. HEENT: Denies sinus pain, ear pain, sore throat, difficulty swallowing, dizzin ess. RESPIRATORY: Denies dyspnea, cough, wheezing, hemoptysis, sputum. CARDIOVASCULAR: Denies chest pain, palpitations, orthopnea, edema, GASTROINTESTINAL: Denies nausea, vomiting, abdominal pain, diarrhea, constipation, melena. : Denies dysuria, frequency, incontinence, hematuria, urinary retention. MUSCULOSKELETAL: See HPI SKIN: Denies rash, skin lesions, or other NEUROLOGIC: Denies weakness, headache, numbness, change in speech, confusion, seizures, incoordination. PSYCHIATRIC: No concerning psychosocial issues. 12 point review of systems is negative except for those stated above Patient History Social History Smoking Status: Current every day smoker Smoking Status: Current every day smoker tobacco type: cigarettes alcohol intake frequency: 0-2 drinks per day Substance Use Type: does not use Exam Narrative Exam Narrative: GENERAL: [37] year old patient appears stated age. Well-developed patient, in mild distress. HEAD: Atraumatic. Normocephalic. EYES: Pupils equal round and reactive. Extraocular motions intact. No scleral icterus. No injection or drainage. ENT: Nose without bleeding, purulent drainage. Throat without erythema, tonsillar hypertrophy or exudate. Airway patent. NECK: Trachea midline. Non tender CARDIOVASCULAR: Regular rate and rhythm without murmurs, gallops, or rubs. RESPIRATORY: Clear to auscultation. Breath sounds equal bilaterally. No wheezes, rales, or rhonchi. GASTROINTESTINAL: Abdomen soft, non-tender, nondistended. EXTREMITIES: Right knee with minimal tenderness lateral to the patella, no effusion, no ligamentous laxity, lateral joint line tenderness to palpation. Negative Alex's, negative Pily's BACK: clam shucking machine tender but free of any obvious external abnormalities. Patient exam notes decreased range of motion and muscle spasm, but no CVA tenderness, or vertebral point tenderness. There are no symptoms of cauda equina such as saddle anesthesia, and decreased reflexes, decreased sensation or strength. NEURO: AOx3. SKIN: No rash or erythema of visible areas Initial Vital Signs Initial Vital Signs: Vital Signs Temperature 97.6 F 01/05/23 23:20 Pulse Rate 90 01/05/23 23:20 Respiratory Rate 18 01/05/23 23:20 Blood Pressure 156/96 H 01/05/23 23:20 Pulse Oximetry 95 01/05/23 23:20 Oxygen Delivery Method Room Air 01/05/23 23:20 Course Orders Ordered: ED Orders 01/05/23 23:54 XR knee RT 3V Stat 01/06/23 02:02 Consult to DCS ENGINEER - Fireworks Display Specialist Stat Discontinued Medications Cyclobenzaprine HCl (Cyclobenzaprine 10 Mg Prepack) 1 bottle MISC SEEINSTR ONE Stop: 01/06/23 01:27 Last Admin: 01/06/23 01:35 Dose: 1 bottle Documented By: MAYELA Vital Signs Vital signs: Vital Signs - 8 hr 01/05/23 23:20 01/06/23 01:37 Temperature 97.6 F Pulse Rate 90 92 H Respiratory Rate 18 16 Blood Pressure 156/96 H 156/85 H Pulse Oximetry 95 96 Oxygen Delivery Method Room Air Room Air MDM - Extremity Injury (Lower) MDM Narrative Medical decision making narrative: [37] year old patient presents with knee and back pain Multiple etiologies for patient's symptoms considered including, but not limited to: [Knee sprain versus fracture versus other, lumbar radiculopathy versus cauda equina versus epidural abscess versus hematoma versus other] Prior Charts reviewed in our EMR Primary Historian: patient Imaging reviewed: Right knee x-ray without obvious trauma Consultations: Patient's symptoms improved over duration of stay with above-stated therapies. Multiple etiologies of back pain considered including; Epidural abscess, cauda equina, mass occupying lesion, and other considered, however thankfully no red flag findings consistent with neurosurgical emergency are present Findings and discharge diagnosis discussed with patient/family followed by verbalization of understanding Return precautions discussed with patient/family whom verbalize understanding of diagnosis and plan Discharge Plan Departure Patient Disposition: Home Clinical Impression: Knee sprain, Acute lumbar radiculopathy, Anxiety Instructions: DI for Knee Pain Activity Restrictions/Additional Instructions: *You have been diagnosed with [right knee sprain, right lumbar radiculopathy] *What to do: *Please continue to take your regular medications as directed. [x ] New medication prescriptions sent to your pharmacy: [[facility]] [ ] New medication written as a paper prescription [ ] No new medications given *Please follow up with your primary care provider in 2-3 days, call for an appointment. Let them know you were seen in the Emergency Department and that we ask that you be seen in follow up. We will electronically transmit a record of today's note if your PCP is in our system *If you do not have a primary care provider please contact the [facility] Resource line at [phone]. They will ask some questions about your medical history and help get you set up with a doctor in the community. *Return to Emergency Department if you should have any new, worsening or concerning symptoms, such as [fever greater than 101 F, shaking chills, worsening pain, persistent vomiting or other bothersome symptoms] *If you feel that you are entering into mental health crisis you have multiple options 1. Return to the ER immediately 2. Call the Crisis Line at [phone] 3. Send an anonymous text by sending the word Kasey to [phone] 4. Navigate your web browser to [employer] to engage in anonymous chat with a mental health worker Prescriptions: New hydrocodone-acetaminophen 5-325 mg tablet 1 tab PO Q4-6H PRN (Reason: pain) Qty: 10 0RF ketorolac 10 mg tablet 10 mg PO Q6H PRN (Reason: pain) Qty: 14 0RF gabapentin 300 mg capsule 300 mg PO BEDTIME Qty: 14 0RF lorazepam 1 mg tablet 1 mg PO TID PRN (Reason: anxiety) Qty: 10 0RF No Action pantoprazole [Protonix] 40 mg tablet,delayed release (DR/EC) 40 mg PO DAILY Qty: 30 0RF ondansetron 4 mg tablet,disintegrating 4 mg PO TID-QID PRN (Reason: nausea and vomiting) Qty: 10 0RF ondansetron 4 mg tablet,disintegrating 4 mg PO Q8H PRN (Reason: nausea and vomiting) Qty: 20 0RF metoclopramide HCl [Reglan] 10 mg tablet 10 mg PO QAC Qty: 14 0RF Rx Instructions: administer 30 minutes before meals ketorolac 10 mg tablet 10 mg PO Q6H PRN (Reason: pain) Qty: 14 0RF Referrals: [facility] [Outside] Stand Alone Forms: Patient Portal/API
--- NOTE | 2023-01-05 23:54 | DI.RAD.S_ITS ---
PROCEDURE: XR KNEE RT 3V INDICATIONS: pain in lateral knee TECHNIQUE: 3 views of the knee were acquired. COMPARISON: [facility], , KNEE 3V RIGHT, 07/31/2013, 21:05. FINDINGS: Bones: No fractures or dislocations. No suspicious bony lesions. Soft tissues: No joint effusion. No suspicious soft tissue calcifications. IMPRESSION: No trauma found, source of new pain is not identified. Dictated by: Jose Olmstead M.D. on 01/06/2023 at 1:28 Approved by: Jose Olmstead M.D. on 01/06/2023 at 1:29
[2023-01-06 01:30] VITALS: BMI 43.4
[2023-01-06] MEDS: CYCLOBENZAPRINE 10 MG PREPACK 1 BOTTLE MISC (01:35)
[2023-01-06 01:37] VITALS: BP 156/85; PULSE 92; RESP 16; O2SAT 96
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
== END 2023-01-06 01:40 | disposition home or self-care (01) ==
PROVIDERS: Emergency Provider Emergency Medicine
DX: M54.16 Radiculopathy, lumbar region (principal); F41.9 Anxiety disorder, unspecified; S83.91XA Sprain of unspecified site of right knee, initial encounter; X58.XXXA Exposure to other specified factors, initial encounter
CPT/HCPCS: 73562; 99281; 99283

== ENCOUNTER 2023-02-17 19:18 | Emergency (ER) | payer OTHER, MEDICAID, SELFPAY ==
[2023-02-17 19:25] VITALS: BP 181/102; PULSE 89; RESP 16; TEMP 36.8; O2SAT 98; BMI 42.0
== END 2023-02-17 22:38 | disposition left against medical advice (07) ==
PROVIDERS: Emergency Provider Emergency Medicine
DX: T63.441A Toxic effect of venom of bees, accidental (unintentional), initial encounter (principal)
CPT/HCPCS: 99281

== ENCOUNTER 2024-10-25 17:53 | Emergency (ER) | payer OTHER, SELFPAY ==
[2024-10-25 18:10] VITALS: BP 149/86; PULSE 99; RESP 18; TEMP 36.4; O2SAT 97; BMI 43.4
[2024-10-25 18:38] LABS: Add Manual Diff / Slide Review NO; Basophils Absolute Auto 100 /uL (0-100); Basophils Percent Auto 0.8 % (0-2); Eosinophils Absolute Auto 200 /uL (0-450); Eosinophils Percent Auto 2.7 % (2-4); Hematocrit 47.9 % (36-46); Hemoglobin 16.2 g/dL (12.0-16.0); Lymphocytes Absolute Auto 2800 /uL (1100-4500); Lymphocytes Percent Auto 31.8 % (25-40); Mean Corpuscular HGB Conc 33.8 % (30-36); Mean Corpuscular Hemoglobin 30.2 PG (26-34); Mean Corpuscular Volume 89.3 fL (80-100); Monocytes Absolute Auto 600 /uL (0-900); Monocytes Percent Auto 6.2 % (3-14); Neutrophils Absolute Auto 5200 /uL (1500-7000); Neutrophils Percent Auto 58.5 % (50-75); Platelet Count 281 X10^3/uL (150-400); Red Blood Cell Count 5.36 X10^6/uL (4.0-5.2); Red Cell Distribution Width 13.4 % (11.6-14.8); White Blood Cell Count 8.9 X10^3/uL (4.5-11.0)
[2024-10-25 18:43] LABS: Alanine Aminotransferase 38 IU/L (<35); Albumin 4.7 g/dL (3.5-5.0); Albumin Globulin Ratio 1.6 (1.0-2.8); Alkaline Phosphatase 203 U/L (38-126); Aspartate Aminotransferase 29 IU/L (14-36); BUN Creatinine Ratio 36.2 (6-22); Bilirubin Total 0.5 mg/dL (0.2-1.3); Blood Urea Nitrogen 21 mg/dL (7-17); Calcium 9.6 mg/dL (8.4-10.2); Carbon Dioxide 23 mmol/L (22-32); Chloride 102 mmol/L (98-107); Estimated Glomerular Filt Rate > 60 mL/min (>60); Glucose 288 mg/dL (70-100); HEMOLYSIS 28 (0-50); Potassium 4.4 mmol/L (3.4-5.1); Sodium 136 mmol/L (137-145); Total Protein 7.7 g/dL (6.3-8.2)
--- NOTE | 2024-10-25 22:04 | ED_ITS ---
HPI - Dizziness General Chief Complaint: Dizziness Stated Complaint: Light-Headedness, Lethargy Time Seen by Provider: 10/25/24 18:39 Source: patient, RN notes reviewed and old records reviewed Mode of arrival: Ambulatory Limitations: no limitations History of Present Illness HPI Narrative: 39-year-old female diabetic presents with complaint of feeling dizzy, lightheaded decreased energy for the past 3 weeks. She states no fevers or chills, no chest pain, no shortness of breath she does sometimes get nausea but states she feels like that is from drinking 2 gal of electrolyte water daily, no vomiting. No abdominal back or flank pain. No new swelling of her extremities. No issues with bowel movements such as diarrhea or constipation. She denies dysuria urgency or frequency. She denies any syncope. Patient is on glipizide, metformin was recently started on Jardiance 3 weeks ago she was supposed to be taking a daily shot which he states is not insulin but is for diabetes. She was not sure of the name. She notes that she was out of her metformin for about 6 weeks so restarted that and then just started the Jardiance 3 weeks ago. States it is all in the same timeframe has her symptoms. She has not started the injection medication yet. She does have a glucometer to check her sugar as needed. She would prior cholecystectomy. Several antibiotic allergies. Does use tobacco daily, no regular alcohol or recreational drugs. States her physician checked her labs she had a high white count so she was concerned as they told her they would check in 3 months but that if it was still high they would need to evaluate her for cancer. Related Data Previous Rx's Medication Instructions Recorded ondansetron 4 mg disintegrating 4 mg PO TID-QID PRN nausea and 08/19/21 tablet vomiting #10 tabs pantoprazole 40 mg tablet,delayed 40 mg PO DAILY #30 tabs 08/19/21 release (Protonix) metoclopramide HCl 10 mg tablet 10 mg PO QAC nausea and vomit #14 09/07/21 (Reglan) tabs ondansetron 4 mg disintegrating 4 mg PO Q8H PRN nausea and 09/07/21 tablet vomiting #20 tabs ketorolac 10 mg tablet 10 mg PO Q6H PRN pain #14 tabs 08/12/22 gabapentin 300 mg capsule 300 mg PO BEDTIME #14 caps 01/06/23 hydrocodone 5 mg-acetaminophen 325 1 tab PO Q4-6H PRN pain #10 tabs 01/06/23 mg tablet ketorolac 10 mg tablet 10 mg PO Q6H PRN pain #14 tabs 01/06/23 lorazepam 1 mg tablet 1 mg PO TID PRN anxiety #10 tabs 01/06/23 Allergies Allergy/AdvReac Type Severity Reaction Status Date / Time clarithromycin [From BIAXIN] Allergy Unknown Swelling Verified 10/25/24 18:09 of Lip/Tongue/Throat erythromycin base Allergy Unknown Swelling Verified 10/25/24 18:09 [ERYTHROMYCIN BASE] of Lip/Tongue/Throat Penicillins [PENICILLINS] Allergy Unknown Swelling Verified 10/25/24 18:09 of Lip/Tongue/Throat Review of Systems Review of Systems ROS Unobtainable: All systems reviewed & are unremarkable except as noted in HPI and below Patient History Social History Smoking Status: Current every day smoker Smoking Status: Current every day smoker tobacco type: cigarettes alcohol intake frequency: 0-2 drinks per day Exam Narrative Exam Narrative: GENERAL: Alert and oriented x three, female in no acute distress, BMI 43 HEENT: Head normocephalic, atraumatic, EOMI, pupils reactive, face symmetric, moist mucous membranes NECK: Supple, full range of motion CARDIOVASCULAR: Regular rate and rhythm without murmurs, rubs or gallops. RESPIRATORY: Breath sounds equal bilaterally, no wheezes rales or rhonchi. ABDOMEN: Soft, nontender. Normoactive bowel sounds all 4 quadrants. No guarding or rebound, rigidity, no mass : No CVA tenderness EXTREMITIES: Normal range of motion, no clubbing or edema. Neurovascularly intact NEUROLOGICAL: Cranial nerves II through XII grossly intact. Moving all extremities SKIN: Warm, dry, no petechiae, no rashes or lesions. Initial Vital Signs Initial Vital Signs: Vital Signs Temperature 97.6 F 10/25/24 18:10 Pulse Rate 99 H 10/25/24 18:10 Respiratory Rate 18 10/25/24 18:10 Blood Pressure 149/86 H 10/25/24 18:10 Pulse Oximetry 97 10/25/24 18:10 Oxygen Delivery Method Room Air 10/25/24 18:10 Course Orders Ordered: ED Orders 10/25/24 18:23 Complete Blood Count AUTO DIFF Stat Comprehensive Metabolic Panel Stat 10/25/24 18:39 EKG-12 Lead Stat Vital Signs Vital signs: Vital Signs - 8 hr 10/25/24 22:37 10/25/24 22:38 10/25/24 23:00 Pulse Rate 93 H Respiratory Rate 20 Blood Pressure 160/89 H 146/86 H Pulse Oximetry 97 10/25/24 23:00 10/25/24 23:30 10/25/24 23:30 Pulse Rate 88 85 Respiratory Rate Blood Pressure 127/70 Pulse Oximetry 96 96 MDM - Dizziness Lab Data 10/25/24 18:23 10/25/24 18:23 Labs: Lab Results 10/25/24 Range/Units 18:23 WBC 8.9 (4.5-11.0) X10^3/uL RBC 5.36 H (4.0-5.2) X10^6/uL Hgb 16.2 H (12.0-16.0) g/dL Hct 47.9 H (36-46) % MCV 89.3 (80-100) fL MCH 30.2 (26-34) PG MCHC 33.8 (30-36) % RDW 13.4 (11.6-14.8) % Plt Count 281 (150-400) X10^3/uL Neut % (Auto) 58.5 (50-75) % Lymph % (Auto) 31.8 (25-40) % [place] % (Auto) 6.2 (3-14) % Eos % (Auto) 2.7 (2-4) % Baso % (Auto) 0.8 (0-2) % Neut # (Auto) 5200 (4596-5646) /uL Lymph # (Auto) 2800 (9241-6488) /uL [place] # (Auto) 600 (0-900) /uL Eos # (Auto) 200 (0-450) /uL Baso # (Auto) 100 (0-100) /uL Sodium 136 L (137-145) mmol/L Potassium 4.4 (3.4-5.1) mmol/L Chloride 102 (98-107) mmol/L Carbon Dioxide 23 (22-32) mmol/L BUN 21 H (7-17) mg/dL Creatinine 0.58 (0.52-1.04) mg/dL Estimated GFR > 60 (>60) mL/min BUN/Creatinine Ratio 36.2 H (6-22) Glucose 288 H (70-100) mg/dL Calcium 9.6 (8.4-10.2) mg/dL Total Bilirubin 0.5 (0.2-1.3) mg/dL AST 29 (14-36) IU/L ALT 38 H (<35) IU/L Alkaline Phosphatase 203 H (38-126) U/L Total Protein 7.7 (6.3-8.2) g/dL Albumin 4.7 (3.5-5.0) g/dL Globulin 3.0 (1.7-4.1) g/dL Albumin/Globulin Ratio 1.6 (1.0-2.8) TSH 2.42 (0.47-4.68) uIU/mL Point of Care Testing Test Results Negative Urine Dip Bedside Urine Glucose 1000 mg/dl Bedside Urine Bilirubin - Negative Bedside Urine Ketone - Negative Urine Specific [place] 1.01 Bedside Urine Occult Blood - Negative Bedside Urine pH 5.5 Bedside Urine Protein - Negative Bedside Urine Urobilinogen - Negative Bedside Urine Nitrite - Negative Bedside Urine Leukocytes - Negative Esterase ECG Data Attestation: I personally reviewed and interpreted this ECG as follows: Interpretation: Sinus rhythm rate of 90, [place] 192 QRS 82 QTC of [address] elevation depression noted MDM Narrative Medical decision making narrative: Urine is negative, point of care urine shows glucose, negative for ketones, no nitrates or leukocyte esterase. Labs show white count 8.9, hemoglobin of 16 point platelets of 281. Sodium 136 BUN 21 electrolytes are otherwise appropriate glucose is 288, ALT is 38, alk- phos is 203. TSH was sent patient feels comfortable returning home not waiting for results discussed she can look in the portal to follow up final results. EKG shows no acute change. Discharge Plan Departure Patient Disposition: Home Clinical Impression: Dizziness Instructions: DI for Dizziness-Nonvertigo Activity Restrictions/Additional Instructions: Follow up with your physician, TSH level was sent but has not resulted you need to follow this up with your physician. Some of your symptoms maybe related to starting your new medication. Talk with your physician if they are persisting. Please return for fevers, passing out, severe headaches, new chest pain or shortness of breath, persistent vomiting, black or bloody stools or other new or concerning changes. Prescriptions: No Action pantoprazole [Protonix] 40 mg tablet,delayed release (DR/EC) 40 mg PO DAILY Qty: 30 0RF ondansetron 4 mg tablet,disintegrating 4 mg PO TID-QID PRN (Reason: nausea and vomiting) Qty: 10 0RF ondansetron 4 mg tablet,disintegrating 4 mg PO Q8H PRN (Reason: nausea and vomiting) Qty: 20 0RF metoclopramide HCl [Reglan] 10 mg tablet 10 mg PO QAC Qty: 14 0RF Rx Instructions: administer 30 minutes before meals ketorolac 10 mg tablet 10 mg PO Q6H PRN (Reason: pain) Qty: 14 0RF hydrocodone-acetaminophen 5-325 mg tablet 1 tab PO Q4-6H PRN (Reason: pain) Qty: 10 0RF ketorolac 10 mg tablet 10 mg PO Q6H PRN (Reason: pain) Qty: 14 0RF gabapentin 300 mg capsule 300 mg PO BEDTIME Qty: 14 0RF lorazepam 1 mg tablet 1 mg PO TID PRN (Reason: anxiety) Qty: 10 0RF Stand Alone Forms: Patient Portal/API/Survey
[2024-10-25 22:37] VITALS: BP 160/89
[2024-10-25 22:38] VITALS: PULSE 93; RESP 20; O2SAT 97
[2024-10-25 23:00] VITALS: BP 146/86; PULSE 88; O2SAT 96
--- NOTE | 2024-10-25 23:05 | EKG_ITS ---
[facility] [address] [place] [address] Test Date: 2024-10-25 Pat Name: Nelly Crum Department: [facility] Room: Gender: Female Manager Of Information: : 1985 Requested By: Order Number: [id number] Reading MD: Kosta Springer MD Measurements Intervals [place] Rate: 90 P: 54 FL: 192 QRS: 61 QRSD: 82 T: 31 QT: 370 QTc: 452 Interpretive Statements Normal sinus rhythm Low voltage QRS Electronically Signed On 10-26-2024 7:43:26 PDT by Kosta Springer MD
[2024-10-25 23:30] VITALS: BP 127/70; PULSE 85; O2SAT 96
[2024-10-26 00:21] LABS: Thyroid Stimulating Hormone 2.42 uIU/mL (0.47-4.68)
== END 2024-10-25 23:44 | disposition home or self-care (01) ==
PROVIDERS: Emergency Provider Emergency Medicine
DX: R42 Dizziness and giddiness (principal); R11.0 Nausea
CPT/HCPCS: 80053; 81003; 81025; 84443; 85025; 93005; 93010; 99282; 99284